=== PATIENT | female | born 1980 | race Caucasian/White ===

== ENCOUNTER 2022-01-06 20:25 | Emergency (ER) | payer BC ==
--- OUTSIDE RECORDS SUMMARY | 2022-01-06 20:29 | XMS REPORT | Continuity of Care Document ---
:1980 Author Organization [facility] t Address [address] [place] [address] Care Team Providers Name Role Phone Jeanette Juares Attending Clinician Unavailable BRIELLE Attending Clinician Unavailable Brielle HOWELL Attending Clinician Only, Test Attending Clinician Unavailable Willian HOWELL, Cam Attending Clinician BRIELLE Admitting Clinician Unavailable Brielle HOWELL Admitting Clinician Payers Payer Name Policy Type Policy Number Effective Date Expiration Date S ource [facility] [id number] 2019 00:00:00 OUT OF STATE Problems Condition Condition Condition Status Onset Resolution Last Treating Co mments Source Name Details Category Date Date Treatment Clinician Date Obesity Obesity Disease Active Univers (BMI (BMI 6-16 ity of 30-39.9) 30-39.9) 00:00: [place] 00 Medical Branch Allergies, Adverse Reactions, Alerts Allergy Allergy Status Severity Reaction(s) Onset Inactive Treating Comm ents Source Name Type Date Date Clinician Morphine Propensi Active Swelling Univ ers (Pf) ty to 8- ity of adverse 00:00: [place] reaction 00 Medical s Branch MORPHINE DRUG Active High Swelling Univer s (PF) 8-23 ity of 00:00: 00 Medical Branch CIPROFLO Allergy Active Other [facility] MORPHINE Allergy Active [facility] TIZANIDI Allergy Active Itching [facility] Ciproflo Propensi Active Palpitations Shaking , Univers xacin ty to 01-15 rapid ity of adverse 00:00: heart [place] reaction 00 beat, Medical s swelling Branch Tizanidi Propensi Active Itching Unive rs ne ty to 01-15 ity of adverse 00:00: [place] reaction 00 Medical s Branch CIPROFLO DRUG Active High SOB Univers [facility] 01-15 ity of 00:00: [place] 00 Medical Branch TIZANIDI DRUG Active High ITCHING Univers NE INGREDI 01-15 ity of 00:00: [place] 00 Medical Branch Zanaflex Adverse Active Info Not Commo n Reaction Available [facility] Morphine Adverse Active Info Not Commo n Sulfate Reaction Available [facility] Cipro Adverse Active Info Not Common Reaction Available [facility] Social History Social Habit Start Date Stop Date Quantity Comments Source Sex Assigned At [facility] Medical Branch Exposure to Not sure [facility] SARS-CoV-2 (event) Medica l Branch Alcohol intake 2020-01-28 2020-01-28 [facility] 00:00:00 00:00:00 Medical Branch History [facility] 2020-01-28 2020-01-28 2 [facility] Alcohol Frequency 00:00:00 00:00:00 Medical Branch History [facility] 2020-01-28 2020-01-28 1 [facility] Alcohol Std Drinks 00:00:00 00:00:00 Medica l Branch History [facility] 2020-01-28 2020-01-28 1 [facility] Alcohol Binge 00:00:00 00:00:00 Medical Bra [facility] Smoking Status Start Date Stop Date Source Never smoker [facility] Medical Branch Medications Ordered Filled Start Stop Current Ordering Indication Dosage Frequency Signature Comments Components Source Medication Medication Date Date Medication? Clinician (SIG) Name Name lactated Yes 1000mL at 75 Univer s ringers IV 6-16 mL/hr, ity of infusion 16:45: 1,000 mL[place] 1[place]000 [place] 00 IV Medical Infusion, Branch CONTINUOUS , Starting Tue01/29/20 at 1145, Until Discontinu ed, Routine, PACU FENTanyl PF 2019-0 Yes 25ug 25 mcg, Uni vers (SUBLIMAZE 6-16 Slow IV ity of (PF)) 16:32: Push, [place] injection 44 Q5MIN PRN, Medi lanny 25 mcg 4 doses, Branch Starting 01/29/20 at 1132, Until Discontinu ed, Routine, Pain (scale 4-6), PACU FENTanyl PF 2019-0 2020- No 25ug 25 mcg, Un ronald (SUBLIMAZE 01-28 Slow IV ity o f (PF)) 16:32: 16:56 Push, [place] injection 44 :00 Q5MIN PRN, Medi lanny 25 mcg 4 doses, Branch Starting 01/29/20 at 1132, Until Tue01/29/20 at 1156, Routine, Pain (scale 7-10), PACU ondansetron 2019-0 2020- No 4mg 4 mg, Slow Univers (ZOFRAN 01-28 IV Push, ity of (PF)) 16:32: 17:06 PRN, 1 [place] injection 4 44 :00 dose, Medical mg Starting Branch 01/29/20 at 1132, Until Tue01/29/20 at 1206, Routine, Nausea and Vomiting (N/V), PACU HYDROcodone 2019-0 Yes 1{tbl} 1 tablet, Univers -acetaminop 6-16 Oral, PRN, it y of hen (NORCO) 15:55: 1 dose, Bart as 10-325 mg 53 Starting Medica l tablet 1 [facility] tablet 01/29/20 at 1055, Until Discontinu ed, Routine, Pain (scale 7-10), DSU Recovery ibuprofen 2019-0 Yes 800mg 800 mg, Univ ers (IBU) 6-16 Oral, PRN, ity of tablet 800 15:55: 1 dose, [place] mg 53 Starting Medical [facility] Branch 01/29/20 at 1055, Until Discontinu ed, Routine, Pain (scale 1-3), DSU Recovery HYDROcodone 2019-0 2020- No 1{tbl} 1 tablet, Univers -acetaminop -16 -16 Oral, PRN, i ty of hen (NORCO 15:55: 17:48 1 dose, Bart as 5) 5-325 mg 53 :00 Starting Medi lanny tablet 1 Tue Branch tablet 01/29/20 at 1055, Until Discontinu ed, Routine, Pain (scale 4-6), DSU Recovery sodium 2020-0 Yes Intra-op Univers chloride -16 ity of 0.9 % 13:59: [place] irrigation 00 Medical solution Branch bupivacaine 2020-0 Yes PRN, Univ s (preserv -16 Starting ity of free) 13:30: Tue [place] (SENSORCAIN 00 01/29/20 at Ok dical E MPF) 0.25 0830, Branch % (2.5 Until mg/mL) Discontinu injection ed, Routine, Intra-op lactated 2019-0 2020- No 1000mL at 20 [facility] rs ringers IV 01-28 06-16 mL/hr, ity of infusion 12:30: 12:15 1,000 mL, Bart as 1,000 mL 00 :00 IV Medical Infusion, Branch ONCE, 1 dose, Tue01/29/20 at 0730, Routine, DSU Pre-op scopolamine 2019-0 Yes 1.5mg 1.5 mg, Un ronald transdermal 01-28 Topical, ity of (TRANSDERM- 12:15: Administer [place] SCOP) patch 00 over 72 Medic al 1.5 mg Hours, Branch Q72H, First dose on Tue01/29/20 at 0715, Until Discontinu ed, Routine, DSU Pre-op Valtrex Valtrex 2020-0 2020- No Bear 2 tablet Common -16 04-17 Juares Spirit 00:00: 00:00 - [facility]I 00 :00 [facility] Xanax Xanax 2020-0 Yes Bear 1 tablet Commo n 3-17 Juares [facility] 00:00: - [facility]I 00 [facility] No known No Univers medications ity of [facility] No known No Univers medications ity of [facility] Cyclobenzap Cyclobenzap Yes Bear 1 tablet Common rine HCl rine HCl Juares as needed S pirit [facility] Neurontin Neurontin Yes Bear [address] [facility] Dilaudid Dilaudid Yes Bear 1 tablet C ommon Juares as needed [facility] Belsomra Belsomra Yes Bear 1 tablet C ommon Juares at bedtime Spirit as needed - [facility] Immunizations Ordered Immunization Filled Immunization Date Status Commen ts Source Name Name TDAP > 7 TDAP > 7 2018-11-28 Completed Common Spirit Years-Adacel Years-Adacel 00:00:00 - [facility] Vital Signs Vital Name Observation Time Observation Value Comments Source Systolic blood 2020-01-29 17:36:00 119 mm[Hg] Univer sity [facility] Diastolic blood 2020-01-29 17:36:00 69 [facility]Hg[facility] 2020-01-29 17:36:00 82 /min [facility] Body temperature 2020-01-29 17:36:00 36.11 Shannen [facility] Respiratory rate 2020-01-29 17:36:00 18 /min [facility] Oxygen saturation in 2020-01-29 17:36:00 94 /min [facility] blood by [facility] Pulse oximetry Branch Body height 2020-01-28 14:11:00 165.1 cm [facility] Body weight 2020-01-28 14:11:00 86.183 kg [facility] BMI 2020-01-28 14:11:00 31.62 kg/m2 [facility] Procedures Procedure Date / Time Performed Performing Clinician Sourc e ABORH CONFIRMATION 2020-01-29 12:00:00 Slade Ford [facility] CBC WITH DIFFERENTIAL 2020-01-29 11:46:00 Brielle Slade [facility] URINALYSIS 2020-01-29 11:46:00 Brielle Slade [facility] HB ABO GROUPING 2020-01-29 11:46:00 [facility] 2020-01-29 11:45:00 Slade Ford [facility] Encounters Start End Encounter Admission Attending Care Care Encounter Source Date/Time Date/Time Type Type Clinicians Facility Department ID 2021-09-09 Outpatient Juares, STLMLC STLC [id number] Common 13:34:29 Bear [id number] Spirit [facility] 2021-09-09 Outpatient Juarse, STLMLC STLMLC [id number] Common 12:59:[id number] [facility] 2021-09-09 Outpatient Juares, STLMLC STLMLC Common 12:46:[id number] [facility] 2021-09-09 Outpatient Juares, STLMLC STLMLC Common 12:38:[id number] [facility] 2021-09-09 Outpatient ECHEVARRIA ECHEVARRIA Triangl 12:29:39 0209 e [facility] 2021-09-09 Outpatient ECHEVARRIA ECHEVARRIA Triangl 12:14:10 [id number] e [facility] 2021-09-09 Outpatient Juares, STLMLC STLMLC Common 11:49:[id number] [facility] 2021-06-12 Outpatient BRIELLE [facility] HUSAM [id number] Univers 01:02:58 [facility] 2021-03-18 2021-03-18 Outpatient STLMLC STLMLC [id number] Common 00:00:00 00:00:00 [facility] 2021-03-03 2021-03-03 Outpatient STLMLC STLMLC [id number] Common 00:00:00 00:00:00 [facility] 2020-12-17 2020-12-17 Outpatient STLMLC STLMLC [id number] Common 00:00:00 00:00:00 [facility] 2020-12-16 2020-12-16 Outpatient STLMLC STLMLC [id number] Common 00:00:00 00:00:00 [facility] 2020-11-13 2020-11-13 Outpatient STLMLC STLMLC [id number] Common 00:00:00 00:00:00 [facility] 2020-05-17 2020-05-17 Outpatient ECHEVARRIA ECHEVARRIA [id number] Tri[facility] 00:00:00 00:00:00 e [facility] 2020-01-29 2020-01-29 [facility] [id number] Univers 06:25:00 13:12:00 Encounter Slade Frey [id number] ity of Ronald [id number] [facility] [id number] [place] [id number] Branch 2020-01-28 2020-01-28 Laboratory Only, Adc Test [facility] [id number] Univers 13:12:08 13:27:08 Only Allison Dorsey [id number] ity Slade [place] [id number] [facility] [id number] [place] [id number] Branch 2020-01-28 2020-01-28 Outpatient R MARGARETHJOSHJOSE MARIA [facility] [id number] [facility] 13:15:00 13:15:00 SLADE ity [facility] 2019-11-29 2019-11-29 Outpatient [facility] [id number] Common 13:30:00 13:30:[address] [facility] 2019-10-30 2019-10-30 Outpatient [facility] [id number] Common 14:45:00 14:45:[address] [facility] 2018-12-20 2018-12-20 Outpatient [facility] [id number] Common 15:00:00 15:00:[address] [facility] 2018-11-28 2018-11-28 Outpatient [facility] [id number] Common 14:45:00 14:45:[address] [facility] 2018-10-30 2018-10-30 Outpatient [facility] [id number] Common 16:00:00 16:00:[address] [facility] Results Test Description Test Time Test Comments Results Result Comments Source URINALYSIS 2020-01-29 13:56:00 Test Item Value Reference Range Interpretation Comme nts APPEARANCE (test code = Cloudy Clear A 7690279696) COLOR (test code = 2316868579) Yellow Yellow PH (test code = 1523918508) 4.8-8.0 SP GRAVITY (test code = 1.003-1.030 6510151948) GLU U QUAL (test code = Normal Normal 0920078159) BLOOD (test code = 1600781721) 3+ Negative A KETONES (test code = 1184467591) Negative Negative PROTEIN (test code = 2887-8) 30 mg/dL Negative A UROBILIN (test code = Normal Normal 1735651068) BILIRUBIN (test code = Negative Negative 5561144044) NITRITE (test code = 7506812476) Negative Negative LEUK JARED (test code = Negative Negative 7606199432) RBC/HPF (test code = 7323140229) See_Comment H [Automated message] The system which ge nerated this result transmit jeannine reference range: 0 - 3 HP F. The reference range was not used to interpret th is result as normal/abnormal . WBC/HPF (test code = 1907727396) See_Comment H [Automated message] The system which ge nerated this result transmit jeannine reference range: 0 - 5 HP F. The reference range was not used to interpret th is result as normal/abnormal . BACTERIA (test code = Few Negative A 2397217768) MUCOUS (test code = 8917373392) Slight Negative LPF A SQ EPITH (test code = HPF 2067495390) Lab Interpretation (test code = Abnormal 03438-7) [facility] - ONCE [id number] 12:46:30 Test Item Value Reference Range Interpretation Comments ABO & RH (test code O Positive Performe d at [facility] = 20) Laboratory Serv [facility] [address] [place], [place] [id number] Free: [phone] A No. [id number] IAT (test code = Negative Performed a t [facility] 1185) Laboratory [facility] [address] [place] [address]Toll Free: [phone] A No. [id number] [facility] [id number] 12:43:28 Test Item Value Reference Range Interpretation Comments ABO & RH (test code O Positive Performe d at [facility] = 20) Laboratory Serv [facility] [address] [place] [address]Kvgx Free: [phone] A No. [id number] [facility] WITH [id number] 12:39:00 Test Item Value Reference Range Interpretation Comments WBC (test code = See_Comment [Automated message] 1590-2) The system [employer] generated this result transmitted ref erence range: 4.30 - 1 1.10 10*3/?L. The re ference range was not u sed to interpret this result as normal/abnor mal. RBC (test code = See_Comment [Automated message] 829-8) The system [employer] generated this result transmitted ref erence range: 3.93 - 5 .25 10*6/?L. The re ference range was not u sed to interpret this result as normal/abnor mal. HGB (test code = 14.8 g/dL 11.6-15 718-7) HCT (test code = 44.5 % 35.7-45.2 4544-3) MCV (test code = 91.8 fL 80.6-95.5 787-2) MCH (test code = 30.5 pg 25.9-32.8 785-6) MCHC (test code = 33.3 g/dL 31.6-35.1 786-4) RDW-SD (test code 42.2 fL 39-49.9 = 22895-8) RDW-CV (test code 12.5 % 12-15.5 = 788-0) PLT (test code = See_Comment [Automated message] 117-3) The system [employer] generated this result transmitted ref erence range: 166 - 35 8 10*3/?L. The re ference range was not u sed to interpret this result as normal/abnor mal. MPV (test code = 11.2 fL 9.5-12.9 22818-4) NRBC/100 WBC (test See_Comment [Automat ed message] code = 3258461750) The syste Heap which generated this result transmitted ref erence range: 0.0 - 10 .0 /100 WBCs. The refer ence range was not u sed to interpret this result as normal/abnor mal. NRBC x10^3 (test <0.01 See_Comment [Automated message] code = 5875560419) The syste m which generated this result transmitted ref erence range: 10*3/?L. The reference range was not used to interpr et this result as normal/abnormal . GRAN MAT (NEUT) % 63.9 % (test code = 770-8) IMM GRAN % (test 0.40 % code = 9747184638) LYMPH % (test code 26.7 % = 736-9) MONO % (test code 6.5 % = 5905-5) EOS % (test code = 2.0 % 713-8) BASO % (test code 0.5 % = 706-2) GRAN MAT 5.96 10*3/uL 1.88-7.09 x10^3(ANC) (test code = 9341752224) IMM GRAN x10^3 0.04 10*3/uL 0-0.06 (test code = 7361203704) LYMPH x10^3 (test 2.49 10*3/uL 1.32-3.29 code = 731-0) MONO x10^3 (test 0.61 10*3/uL 0.33-0.92 code = 742-7) EOS x10^3 (test 0.19 10*3/uL 0.03-0.39 code = 711-2) BASO x10^3 (test 0.05 10*3/uL 0.01-0.07 code = 704-7) [facility] [id number] 11:48:00 Test Item Value Reference Range Interpretation Comments POCT PREG (test code = 1605) Negative On board controls acceptable with C Yes Line (test code = 3574) POCT PREG LOT # (test code = 3570) POCT PREG TEST DATE (test code = 357) Lab Interpretation (test code = Normal 15734-8) [facility]
[2022-01-06 22:42] LABS: Absolute Lymphocytes (CBC) 2.7 K/uL (0.7-4.9); Hematocrit 41.2 % (36.0-45.0); Lymphocytes % 27.3 % (15.3-44.8); RBC Red Blood Cell Count 4.63 M/uL (3.86-4.86)
--- NOTE | 2022-01-07 00:13 | EDPHYS ---
Physician Documentation [facility] Name: Abbie Cruz Age: 41 yrs Sex: Female : 1980 Arrival Date: 01/06/2022 Time: 20:30 Bed 12 Private MD: ED Physician Cirilo Lima HPI: 01/06 22:47 This 41 yrs old Female presents to ER via Ambulatory with complaints of Headache, jr8 Nausea, Neck Pain, <24hrs Old. 22:47 Severity of symptoms: At its worst the pain was moderate, in the emergency department jr8 the pain is unchanged. Headache History: Denies prior headaches. The symptoms are alleviated by nothing. the symptoms are aggravated by movement. The patient has not experienced similar symptoms in the past. The patient has been recently seen by a physician:. This is a 41-year-old female that presented to the emergency room with nausea and continued headache since this past Tuesday. Stated that this past had a revision of her dorsal root ganglion stimulator. On Tuesday she started to become nauseated and had a headache that is been persistent and not going away. Had a follow-up with her pain surgeon on Tuesday and was given promethazine but did not address the pain. Continues to have symptoms and came to the emergency room for further evaluation at that time.. 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 Patient has never been vaccinated. - Social history:: Smoking status: Patient denies any tobacco usage or history of. ROS: 22:47 Eyes: Negative for injury, pain, redness, and discharge, ENT: Negative for injury, jr8 pain, and discharge, Neck: Negative for injury, pain, and swelling, Cardiovascular: Negative for chest pain, palpitations, and edema, Respiratory: Negative for shortness of breath, cough, wheezing, and pleuritic chest pain, Back: Negative for injury and pain, MS/Extremity: Negative for injury and deformity, Skin: Negative for injury, rash, and discoloration. 22:47 Abdomen/GI: Positive for nausea, Negative for abdominal pain, vomiting, diarrhea. 22:47 Neuro: Positive for headache. Exam: 22:47 Constitutional: This is a well developed, well nourished patient who is awake, alert, jr8 and in no acute distress. Cardiovascular: Regular rate and rhythm with a normal S1 and S2. No gallops, murmurs, or rubs. Normal PMI, no JVD. No pulse deficits. Respiratory: Lungs have equal breath sounds bilaterally, clear to auscultation and percussion. No rales, rhonchi or wheezes noted. No increased work of breathing, no retractions or nasal flaring. Abdomen/GI: Soft, non-tender, with normal bowel sounds. No distension or tympany. No guarding or rebound. No evidence of tenderness throughout. Skin: Warm, dry with normal turgor. Normal color with no rashes, no lesions, and no evidence of cellulitis. MS/ Extremity: Pulses equal, no cyanosis. Neurovascular intact. Full, normal range of motion. Neuro: Awake and alert, GCS 15, oriented to person, place, time, and situation. Cranial nerves II-XII grossly intact. Motor strength 5/5 in all extremities. Sensory grossly intact. Cerebellar exam normal. Normal gait. 22:47 Back: pain, that is mild, of the lumbar area, ROM is normal, normal spinal alignment noted, CVA tenderness, is absent, vertebral tenderness, is appreciated at L1 and L2, Patient has approximately 3 cm incisional scar noted to the lumbar region. Dermabond in place. No dehiscence of wound noted. No erythema. Mild tenderness to palpation noted. Patient has some mild swelling to that region as well. No other acute findings noted.. Vital Signs: 20:54 BP 121 / 82; Pulse 78; Resp 18; Temp 98.5(O); Pulse Ox 100% on R/A; Weight 82.1 kg; tw5 Height 5 ft. 5 in. (165.10 cm); Pain 8/10; 21:59 BP 126 / 81; Pulse 79; Resp 18; Pulse Ox 100% on R/A; Pain 9/10; ld1 23:16 BP 131 / 80; Pulse 82; Resp 18; Pulse Ox 100% on R/A; ld1 20:54 Body Mass Index 30.12 (82.10 kg, 165.10 cm) tw5 MDM: 21:30 Patient medically screened. 8 22:47 Data reviewed: vital signs, nurses notes, lab test result(s), radiologic studies, CT jr8 scan. Data interpreted: Pulse oximetry: on room air is 100 %. Interpretation: normal. 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 ED course: Patient overall feeling much better. Initial round of medications aborted the migraine but now having mild increase in pain again. We will remedicated patient. Discussed with her that there is no acute intracranial findings. Stable lumbar findings post procedurally from her dorsal root ganglion procedure. No epidural fluid collection or other acute findings. Mild gas in the thecal sac which can be normal variant postprocedural. Discussed with her the question is whether or not the headache is from the procedure which can occur or does she have a mild spinal fluid leak. She needs to be reassessed by her pain management surgeon. Patient stated that she will call for [place] in the morning and reschedule for another appointment, knows to come back if worse in the meantime.. 01/06 21:44 Order name: CBC with Diff; Complete Time: 22:51 jr8 01/06 21:44 Order name: Basic Metabolic Panel; Complete Time: 22:51 jr8 01/06 22:56 Order name: CT Lumbar Spine Wo Con kdr 01/06 22:57 Order name: CT Head Brain wo Cont kdr 01/06 21:44 Order name: IV; Complete Time: 21:59 jr8 Administered Medications: 01/06 21:59 Drug: Reglan (metoCLOPramide) 10 mg Route: IVP; Site: left antecubital; ld1 21:59 Drug: Benadryl (diphenhydrAMINE) 25 mg Route: IVP; Site: left antecubital; ld1 01/07 00:21 Drug: Ketorolac 30 mg Route: IVP; Site: left antecubital; vc1 00:22 Drug: fentaNYL (PF) 50 mcg Route: IVP; Site: left antecubital; vc1 Disposition Summary: 01/07/22 00:13 Discharge Ordered Location: Home jr8 Problem: new jr8 Symptoms: have improved jr8 Condition: Stable jr8 Diagnosis - Migraine, unspecified, intractable, without status migrainosus jr8 Followup: jr8 - With: Private Physician - When: Tomorrow - Reason: Recheck today's complaints, Continuance of care, Re-evaluation by your physician Discharge Instructions: - Discharge Summary Sheet jr8 - Migraine Headache jr8 Forms: - Medication Reconciliation Form jr8 - Thank You Letter jr8 - Antibiotic Education jr8 - Prescription Opioid Use jr8 Addendum: 01/08/2022 07:00 Co-signature as Attending Physician, Cirilo Lima MD. r n Signatures: Dispatcher [employer] EDMS Cirilo Lima MD MD rn Roszak, Josh, PA PA jr8 Hui Pedroza RN RN elia1 Twila Balbuena tw5 Krupa Bearden RN RN vc1
--- NOTE | 2022-01-07 00:13 | ER ---
Nurse's Notes [facility] Name: Abbie Cruz Age: 41 yrs Sex: Female : 1980 Arrival Date: 01/06/2022 Time: 20:30 Bed 12 Private MD: Diagnosis: Migraine, unspecified, intractable, without status migrainosus Presentation: 01/06 20:54 Chief complaint: Patient states: "I think I have spinal leakage. I have major migraine, tw5 dizziness. I just feel like crap. Many years ago I had spinal leakage and I felt similar to this. However I think this time is worse because I am nauseous.". Coronavirus screen: Vaccine status: Patient reports receiving the 2nd dose of the covid vaccine. [employer]. Ebola Screen: Patient negative for fever greater than or equal to 101.5 degrees Fahrenheit, and additional compatible Ebola Virus Disease symptoms Patient denies exposure to infectious person. Patient denies travel to an Ebola-affected area in the 21 days before illness onset. Initial Sepsis Screen: Does the patient meet any 2 criteria? No. Patient's initial sepsis screen is negative. Does the patient have a suspected source of infection? No. Patient's initial sepsis screen is negative. Risk Assessment: Do you want to hurt yourself or someone else? Patient reports no desire to harm self or others. Onset of symptoms was January 06, 2022 at 07:00. 20:54 Method Of Arrival: Ambulatory tw5 20:54 Acuity: ALDEN 3 tw5 Triage Assessment: 20:56 Headache History: The patient has had previous headaches and this one is more severe tw5 than previous episodes. General: Appears in no apparent distress. Behavior is calm, cooperative, appropriate for age. Pain: Pain currently is 8 out of 10 on a pain scale. Pain began 0700 this morning Also complains of nausea, photophobia, inability to work. Neuro: Level of Consciousness is awake, alert, obeys commands, Oriented to person, place, time, situation. 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 Patient has never been vaccinated. - Social history:: Smoking status: Patient denies any tobacco usage or history of. Screenin:59 Abuse screen: Denies threats or abuse. Denies injuries from another. Nutritional ld1 screening: No deficits noted. Tuberculosis screening: No symptoms or risk factors identified. Fall Risk None identified. Assessment: 21:59 General: Appears in no apparent distress. comfortable, Behavior is calm, cooperative, ld1 appropriate for age. Pain: Complains of pain in face Pain does not radiate. Pain currently is 9 out of 10 on a pain scale. Neuro: Level of Consciousness is awake, alert, obeys commands, Oriented to person, place, time, situation. Cardiovascular: Capillary refill < 3 seconds Patient's skin is warm and dry. Respiratory: Airway is patent Respiratory effort is even, unlabored. GI: Abdomen is flat, non-distended. : No signs and/or symptoms were reported regarding the genitourinary system. EENT: No signs and/or symptoms were reported regarding the EENT system. Derm: No signs and/or symptoms reported regarding the dermatologic system. Musculoskeletal: No signs and/or symptoms reported regarding the musculoskeletal system. Vital Signs: 20:54 BP 121 / 82; Pulse 78; Resp 18; Temp 98.5(O); Pulse Ox 100% on R/A; Weight 82.1 kg; tw5 Height 5 ft. 5 in. (165.10 cm); Pain 8/10; 21:59 BP 126 / 81; Pulse 79; Resp 18; Pulse Ox 100% on R/A; Pain 9/10; ld1 23:16 BP 131 / 80; Pulse 82; Resp 18; Pulse Ox 100% on R/A; ld1 20:54 Body Mass Index 30.12 (82.10 kg, 165.10 cm) tw5 ED Course: 20:30 Patient arrived in ED. ja2 20:56 Triage completed. tw5 20:56 Arm band placed on left wrist. tw5 21:05 Dread Castrejon PA is PHCP. jr8 21:05 Cirilo Lima MD is Attending Physician. jr8 21:19 Hui Pedroza, RN is Primary Nurse. ld1 21:59 Patient has correct armband on for positive identification. Placed in gown. Bed in low ld1 position. Call light in reach. Side rails up X2. night monitor on. Pulse ox on. NIBP on. Door closed. Noise minimized. Warm blanket given. 21:59 No provider procedures requiring assistance completed. ld1 22:01 Inserted saline lock: 20 gauge in left antecubital area, using aseptic technique. Blood tp1 collected. 23:30 CT Lumbar Spine Wo Con In Process Unspecified. EDMS 23:30 CT Head Brain wo Cont In Process Unspecified. EDMS 01/07 00:42 IV discontinued, intact, bleeding controlled, No redness/swelling at site. Pressure tw5 dressing applied. Administered Medications: 01/06 21:59 Drug: Reglan (metoCLOPramide) 10 mg Route: IVP; Site: left antecubital; ld1 21:59 Drug: Benadryl (diphenhydrAMINE) 25 mg Route: IVP; Site: left antecubital; ld1 01/07 00:21 Drug: Ketorolac 30 mg Route: IVP; Site: left antecubital; vc1 00:22 Drug: fentaNYL (PF) 50 mcg Route: IVP; Site: left antecubital; vc1 Medication: 01/06 21:59 VIS not applicable for this client. ld1 Outcome: 01/07 00:13 Discharge ordered by . jr8 00:42 Discharged to home ambulatory, with family. tw5 00:42 Condition: improved 00:42 Discharge instructions given to patient, Instructed on discharge instructions, follow up and referral plans. Demonstrated understanding of instructions, follow-up care. 00:42 Patient left the ED. tw5 Signatures: Dispatcher [employer] EDMS Dread Castrejon PA PA jr8 Hui Pedroza, RN RN ld1 Huyen Penny Tiffany tw5 Twila Pagan1 Krupa Bearden RN RN vc1
[2022-01-07] MEDS ORDERED: KETOROLAC 30 MG/ML INJ ONE (00:21)
[2022-01-07] MEDS ORDERED: FENTANYL CITR 100 MCG/2 ML ONE (00:21)
[2022-01-07 01:12] VITALS: O2SAT 100
[2022-01-07 01:14] VITALS: BP 131/80
[2022-01-07 01:16] VITALS: TEMP 98.5
--- NOTE | 2022-01-07 11:14 | RAD REPORT ---
EXAM DESCRIPTION: Head Brain Wo Cont 01/06/2022 11:46 PM CDT CLINICAL HISTORY: 41 years, Female, Headache, sudden, severe COMPARISON: None. FINDINGS: Multiple transaxial tomograms of the brain were obtained from the base of the skull to the vertex without contrast. 2-D multiplanar reformats and the coronal and sagittal plane were performed and reviewed. This exam was performed according to our departmental dose-optimization protocol, which includes auto mated exposure control, adjustment of the mA and/or kV according to patient size and/or use of iterat robert reconstruction technique. Brain parenchyma as well as the limon and white matter differentiation demonstrate to be unremarkable. There is no midline shift and/or mass effect. There is no evidence for acute hemorrhage. No focal ar eas of hypodensities. Lateral ventricles and cisterns displace normal appearance. No intra or ext ra axial fluid collections were seen. The calvarium is intact with no evidence for fracture. The visu alized portions of the paranasal sinuses and orbits demonstrate to be clear. IMPRESSION: No acute intracranial hemorrhage identified. Unremarkable CT scan of the head without contrast. Electronically signed by: Bhaskar Orr MD 01/06/2022 11:47 PM CDT Due to temporary technical issues with the PACS/Fluency reporting system, reports are being signed by the in house radiologist without review as a courtesy to ensure prompt reporting. The interpreting r adiologist is fully responsible for the content of the report.
--- NOTE | 2022-01-07 11:17 | RAD REPORT ---
EXAM DESCRIPTION: Spine Lumbar Wo Con CLINICAL HISTORY: 41 years Female, Recent DRG procedure. Pain with headache TECHNIQUE: Helical CT axial imaging of the lumbar spine without IV contrast. Multiplanar reconstruct ion. This exam was performed according to our departmental dose-optimization program, which include s automated exposure control, adjustment of the mA and/or kV according to patient size and/or use of iterative reconstruction technique. COMPARISON: None. FINDINGS: VERTEBRA: Lumbar spine is in normal anatomic alignment. Status post anterior and posterio r lumbar fusion L4-S1 with anterior plate and screw fixation in mature bony interbody dowels. Postero lateral bony fusion masses from L4 through S1 which appear mature. Status post bilateral sacroiliac f usion screws. No acute fracture or subluxation. Lumbar vertebrae are normal in height. Mild anter ior marginal osteophytes at L3 and L4. DISCS: Intervertebral discs are unremarkable. LEVELS: T12-L1: No significant canal stenosis or neural foraminal stenosis. L1-2: No significant canal stenosis or neural foraminal stenosis. L2-3: No significant canal stenosis or neural foraminal stenosis. L3-4: No significant canal stenosis or neural foraminal stenosis. L4-5: No significant canal stenosis or neural foraminal stenosis. L5-S1: No significant canal stenosis or neural foraminal stenosis. SOFT TISSUES: Recently placed neurostimulator lead entering the spinal canal at the L2-3 level and e xtending into bilateral neural foramina at the L2-L3 level. Mild postprocedure subcutaneous emphysema and small amount of gas surrounding the thecal sac. Pre-existing electrode lead entering the spinal canal at the T12-L1 level and extending cephalad beyond the projection of this exam. Fiction And Nonfiction Author image demo nstrates bilateral neurostimulator battery plaques within the posterior flank/gluteal soft tissues. IMPRESSION: 1. Recently placed neurostimulator lead entering the spinal canal at the L2-3 Level an d extending into bilateral neural foramina at the L2-L3 Level. Mild postprocedure subcutaneous emphys leslie and small amount of gas surrounding the thecal sac. 2. Pre-existing electrode lead entering the spinal canal at the T12-L1 Level and extending cephalad beyond the projection of this exam. 3. Status post anterior and posterior lumbar fusion L4-S1 with mature bony interbody dowels and pos terolateral bony fusion masses. Status post bilateral sacroiliac fusion screws. 4. No significant canal or neural foraminal stenosis. Electronically signed by: Naveed Adames MD 01/06/2022 11:58 PM CDT Due to temporary technical issues with the PACS/Fluency reporting system, reports are being signed by the in house radiologist without review as a courtesy to ensure prompt reporting. The interpreting r adiologist is fully responsible for the content of the report.
== END 2022-01-07 00:42 | disposition home or self-care (01) ==
LOC: ER 20:25
DX: G43.019 Migraine without aura, intractable, without status migrainosus (principal); Z88.1 Allergy status to other antibiotic agents; Z88.5 Allergy status to narcotic agent; Z88.8 Allergy status to other drugs, medicaments and biological substances
CPT/HCPCS: 85025; 80048; 36415; 72131; 70450; 96375; 96374; 99284; J3010